=== PATIENT | male | born 1970 | race Caucasian/White ===

== ENCOUNTER → 2020-03-11 14:47 | Outpatient (BNVA) | payer BC, SELFPAY | PROVIDERS: Family Provider Family Medicine; PCP Family Medicine; Visit Provider Family Medicine | DX: E11.9 Type 2 diabetes mellitus without complications (principal); Z79.4 Long term (current) use of insulin | CPT/HCPCS: 80053; 83036 ==

== ENCOUNTER → 2020-04-12 13:41 | Outpatient (BNVA) | payer BC, SELFPAY | PROVIDERS: Family Provider Family Medicine; PCP Family Medicine; Visit Provider Family Medicine | DX: E11.9 Type 2 diabetes mellitus without complications (principal); Z79.4 Long term (current) use of insulin | CPT/HCPCS: 80061; 82044 ==

== ENCOUNTER → 2021-01-10 09:57 | Outpatient (BNVA) | payer BC, SELFPAY | PROVIDERS: Family Provider Family Medicine; PCP Family Medicine; Visit Provider Family Medicine | DX: E11.9 Type 2 diabetes mellitus without complications (principal); Z79.4 Long term (current) use of insulin | CPT/HCPCS: 80053; 80061; 81015; 82043; 83036; 85025 ==

== ENCOUNTER → 2021-02-07 11:12 | Outpatient (BNVA) | payer BC, SELFPAY | PROVIDERS: Family Provider Family Medicine; PCP Family Medicine; Visit Provider Family Medicine | DX: E78.5 Hyperlipidemia, unspecified (principal) | CPT/HCPCS: 80053 ==

== ENCOUNTER → 2021-04-04 10:52 | Outpatient (BNVA) | payer BC, SELFPAY | PROVIDERS: Family Provider Family Medicine; PCP Family Medicine; Visit Provider Family Medicine | DX: E11.9 Type 2 diabetes mellitus without complications (principal); Z79.4 Long term (current) use of insulin; E78.5 Hyperlipidemia, unspecified; F17.219 Nicotine dependence, cigarettes, with unspecified nicotine-induced disorders | CPT/HCPCS: 80053; 80061; 83036 ==

== ENCOUNTER 2021-04-17 22:19 | Inpatient (IN) | payer BC, SELFPAY ==
[2021-04-17 22:25] VITALS: BP 126/75; PULSE 140; RESP 24; TEMP 37.1; O2SAT 98; BMI 21.6
--- NOTE | 2021-04-17 23:15 | XRR_ITS ---
PROCEDURE INFORMATION: Exam: XR Chest Exam date and time: 04/17/2021 11:15 PM Age: 51 years old Clinical indication: Pain; On breathing; Additional info: Chest pain TECHNIQUE: Imaging protocol: XR of the chest. Views: 1 view. COMPARISON: No relevant prior studies available. FINDINGS: Lungs: Unremarkable. No consolidation. Pleural spaces: Unremarkable. No pleural effusion. No pneumothorax. Heart/Mediastinum: Unremarkable. No cardiomegaly. Bones/joints: Unremarkable. XR/XR chest 1V portable [id number] IMPRESSION: No acute findings.
--- NOTE | 2021-04-17 23:17 | ECG_ITS ---
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 Measurements Intervals [place] Rate: 131 P: 87 TX: 100 QRS: 74 QRSD: 88 T: 89 QT: 283 QTc: 418 Interpretive Statements SINUS TACHYCARDIA WITH SHORT TX INTERVAL WITH OCCASIONAL VENTRICULAR PREMATURE COMPLEXES Possible right atrial enlargement ABNORMAL RHYTHM ECG No previous ECG available for comparison Electronically Signed On 04-18-2021 21:11:40 CDT by Oumou Terry M.D. [id number] f
[2021-04-17] MEDS: sodium chloride 0.9% 1,000 ML 999 ML IV (23:34)
[2021-04-17 23:41] LABS: Basophils # 0.1 10^3/uL (0.0-0.1); Basophils % 0.2 %; Hematocrit 60.8 % (42.0-52.0); Hemoglobin 19.3 g/dL (11.7-16.6); Lymphocytes # 4.1 10^3/uL (0.8-4.8); Lymphocytes % 8.9 %; Mean Corpuscular HGB Conc 31.7 g/dL (30.0-36.0); Mean Corpuscular Hemoglobin 29.7 pg (28.0-34.0); Mean Corpuscular Volume 93.7 fL (80-94); Monocytes # 2.7 10^3/uL (0.2-0.9); Monocytes % 5.8 %; Neutrophils # 35.45 10^3/uL (1.8-7.7); Neutrophils % 77.5 %; Nucleated Red Blood Cells % 0 %; Platelet Count 233 10^3/cmm (130-400); Red Blood Count 6.49 10^6/uL (4.1-5.3); Red Cell Distribution Width 12.3 % (12.1-15.1)
[2021-04-17 23:51] LABS: Alanine Aminotransferase 15 U/L (0-41); Albumin Level 5.6 g/dL (3.5-5.2); Alkaline Phosphatase 116 IU/L (40-130); Blood Urea Nitrogen 33 mg/dL (6-20); C Reactive Protein 8.3 mg/L (0.0-4.9); Calcium 10.2 mg/dL (8.5-10.5); Chloride 96 mmol/L (98-107); Creatine Phosphokinase 60 U/L (39-308); Globulin 2.2 g/dL (1.3-4.6); Glomerular Filtration Rate 42.9 mL/min (90-130); Lipase 271 U/L (13-60); Magnesium 2.3 mg/dL (1.7-2.3); Osmolality Calculated 326 mOsm/kg (285-295); Sodium 139 mmol/L (136-145); Total Bilirubin 0.4 mg/dL (0.15-1.2); Total Protein 7.8 g/dL (6.6-8.7)
[2021-04-17 23:52] LABS: Troponin(5th) Baseline 7 ng/L (0-15)
[2021-04-17 23:57] LABS: Procalcitonin 0.65 ng/mL (0-0.5)
[2021-04-18] VITALS (33 sets, daily range): BP systolic 98–124; BP diastolic 65–86; PULSE 0–122; RESP 13–26; TEMP 36.6–37; O2SAT 96–99
[2021-04-18 00:04] LABS: Ketone (Acetest) Serum Positive (Negative)
[2021-04-18 00:14] LABS: Aspartate Amino Transferase 15 U/L (0-40)
[2021-04-18 00:15] LABS: Carbon Dioxide 8 mmol/L (22-29); Glucose 643 mg/dL (65-115)
[2021-04-18 00:16] LABS: Lactate (Lactic Acid level) 4.7 mmol/L (0.5-2.2)
[2021-04-18 00:21] LABS: D Dimer 0.38 ug/mIFEU (0-0.59)
[2021-04-18 00:22] LABS: SARS Covid-2 Antigen Negative (Negative)
[2021-04-18 00:26] LABS: White Blood Count 45.8 10^3/uL (4.0-10.0)
[2021-04-18] MEDS: sodium chloride 0.9% 1,000 ML 999 ML IV (00:33)
[2021-04-18] MEDS: insulin regular-human 250 UNIT in sodium chloride 0.9% 250 ML 7 UNIT IV (00:39)
[2021-04-18 00:40] LABS: ABG PCO2 24.4 mmHg (35-45); Arterial Blood Gas Hematocrit 52.1 % (42-52); Base Excess ABG -16.5 mmol/L (-2.0-2.0); Blood Gas Allen Test Pos; Blood Gas Sample Site Radial, right; Blood Gas Sample Type Arterial; HCO3 ABG 9.5 mmol/L (22-26); Oxygen Device ROOM AIR; PO2 ABG 94.1 mmHg (80.0-100.0)
--- NOTE | 2021-04-18 00:42 | P.HP_ITS ---
Providers/Chief Complaint Primary Care Provider: Karen Castro DO Chief Complaint: N/V/WEAKNESS History of Present Illness Armando Duncan is a 51 year old male who presented today with chief complaint of 1 week of nausea and vomiting. Patient is stating that his symptoms started about 7 days ago, he is not able to keep anything down, not even water, he started noticing decreased urine output hence decided to come to the hospital for further evaluation. He is denying productive cough, chest pain, shortness of breath, fever, diarrhea. He does carry history of non-Hodgkin's lymphoma currently in remission. At home he smokes on daily basis, does not drink alcohol denies IV drug abuse. Diagnosis in the ER revealed severe DKA, high lipase, I requested CT abdomen pelvis to rule pancreatitis, requested triglyceride levels CBC reveals severe leukocytosis, polycythemia, BMP revealed hyperkalemia, SAPPHIRE, severe metabolic acidosis Received 2 L of normal saline in the ER at the time my evaluation he was on 7 units of regular insulin gtt. Review of Systems Const: Reports: fatigue; Denies: fever(s) Eyes: Denies: change in vision ENMT: Denies: throat pain Card: Denies: chest pain Resp: Denies: dyspnea GI: Reports: abdominal pain, nausea and vomiting; Denies: diarrhea : Denies: flank pain Musc: Denies: neck pain Skin/Breast: Denies: rash Neuro: Denies: headache(s) Psych: Denies: anxiety Endo: Denies: polyuria Fernando/Lymph: Denies: easy bruising All/Imm: Denies: urticaria Medications/Allergies Home Medications Medication Instructions Recorded Confirmed Last Taken Type atorvastatin 40 mg tablet 40 mg PO .AT BEDTIME #30 tab 02/07/21 04/04/21 Unknown Rx insulin detemir U-100 100 unit/mL 45 unit SUBCUT DAILY 30 Days #20 ml 04/04/21 04/04/21 Unknown Rx subcutaneous solution insulin lispro 100 unit/mL 15 unit SUBCUT TID #10 ml 04/04/21 04/04/21 Unknown Rx subcutaneous solution metformin 500 mg tablet,extended 500 mg PO BID #60 tab 04/04/21 04/04/21 Unknown Rx release 24 hr Allergies Allergy/AdvReac Type Severity Reaction Status Date / Time codeine AdvReac Mild Unknown Verified 04/04/21 10:16 lisinopril AdvReac Mild COUGH Verified 04/04/21 10:16 PFSH Acute PFSH: Medical History Asperger syndrome Dyslipidemia Neuropathy Nicotine dependence, cigarettes, with unspecified nicotine-induced disorders Non-Hodgkin lymphoma in remission Type 2 diabetes mellitus, with long-term current use of insulin Surgical History History of appendectomy Family History Other CAD (coronary artery disease) Diabetes Social History Smoking and tobacco status: current every day smoker cigarettes Packs smoked per day: 0.5 Alcohol intake: never Vitals/I&O/Wt Last Vital Signs Temp 98.7 F 04/17/21 22:25 Pulse 140 H 04/17/21 22:25 Resp 24 H 04/17/21 22:25 BP 126/75 04/17/21 22:25 Pulse Ox 98 04/17/21 22:25 Weight last 48 hrs Weight 74.389 kg Physical Exam Narrative: EXAM NARRATIVE: Middle-age male who was sitting comfortably in his bed S1, S2 sinus tachycardia No signs of heart failure, clinically looks dehydrated Bilateral breath sound without adventitious rhonchi or crackles Abdomen soft surgical scar kamran. Hypoactive bowel sound Lower extremities no edema gangrene ulcer EOMI, PERRLA no neurological deficit Appropriate mood and after No active distress Data : 04/17/21 20:28 04/17/21 20:21 A&P Assessment and plan (1) DKA (diabetic ketoacidoses): Status: Acute (2) SAPPHIRE (acute kidney injury): Status: Acute (3) Hyperkalemia: Status: Acute Additional A&P Information Severe DKA Severe metabolic acidosis secondary to lactic acidemia and ketones Admit to ICU Start DKA protocol High lipase detected, requested CT abdomen pelvis to rule out pancreatitis, chec k triglyceride level and A1c He has not been able to take his meals and insulin properly in last few days because of recurrent nausea vomiting Severe leukocytosis, carries history of lymphoma in the past, no active signs of hyperviscosity Polycythemia detected, Received 3 L of normal saline in the ER, will need outpatient follow-up with signal system testing maintainer. SAPPHIRE secondary to dehydration: Anticipating improvement with fluid resuscitation Hyperkalemia, BMP every 4 hours, for now he is on normal saline running at 100 mL/h, will give 1 g calcium gluconate and bicarb 1amp N.p.o. Full code DVT prophylaxis Heparin Attestations Medical Necessity Statement*: Anticipating stay in the hospital cross more than 2 midnights for better management of DKA Time Spent in Patient Care: (>than 50% of time spent in counselling and/or direct pt care on unit) . 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
--- NOTE | 2021-04-18 00:54 | CTR_ITS ---
PROCEDURE INFORMATION: Exam: CT Abdomen And Pelvis Without Contrast Exam date and time: 04/18/2021 12:54 AM Age: 51 years old Clinical indication: Abdominal pain; Generalized; Prior surgery; Surgery date: 6+ months; Surgery type: Appy; Patient HX: HX of nhl and dka C/O abd pain w n/v; Additional info: Abd pain , dka TECHNIQUE: Imaging protocol: Computed tomography of the abdomen and pelvis without contrast. Radiation optimization: All CT scans at this facility use at least one of these dose optimization techniques: automated exposure control; mA and/or kV adjustment per patient size (includes targeted exams where dose is matched to clinical indication); or iterative reconstruction. COMPARISON: CR (CHEST, ) 04/17/2021 11:27 PM RADIATION DOSE METRICS: Total DLP (mGy-cm): 983.9 FINDINGS: Liver: Normal. No mass. Gallbladder and bile ducts: Normal. No calcified stones. No ductal dilation. Pancreas: Normal. No ductal dilation. Spleen: Normal. No splenomegaly. Adrenal glands: Normal. No mass. Kidneys and ureters: There is a 3 mm nonobstructing left renal calculus present. Stomach and bowel: Unremarkable. No obstruction. No mucosal thickening. Appendix: Status post appendectomy. Intraperitoneal space: Unremarkable. No free air. No significant fluid collection. Vasculature: Unremarkable. No abdominal aortic aneurysm. Lymph nodes: Unremarkable. No enlarged lymph nodes. Urinary bladder: Unremarkable as visualized. Reproductive: Unremarkable as visualized. Bones/joints: Unremarkable. No acute fracture. Soft tissues: Unremarkable. CT/CT abdomen pelvis wo con [id number] IMPRESSION: 1. There are no acute abdominal findings. 2. Nonobstructing 3 mm left renal calculus Radiation Dose CTDIVOL = (mGy): DLP = 983.9 (mGy-cm)
[2021-04-18 02:32] LABS: Glucose Point of Care 413 mg/dL (70-110)
[2021-04-18 02:58] LABS: Glucose Point of Care 441 mg/dL (70-110)
--- NOTE | 2021-04-18 03:09 | PC.NURSE ---
arrived from ED via stretcher, transferred self to bed, AO x4, follows commands, no c/o at this time
[2021-04-18] MEDS: heparin 5,000 unit/mL INJ 1 mL 5000 UNIT SUBCUT ×3 (03:34→19:00)
[2021-04-18] MEDS: sodium chloride 0.9% 1,000 ML 125 ML IV (03:35)
[2021-04-18 04:03] LABS: Estmated Average Glucose 280; Hemoglobin A1C 11.4 % (4.0-6.0)
[2021-04-18 04:32] LABS: Glucose Point of Care 271 mg/dL (70-110)
[2021-04-18 04:45] LABS: Add Urine Microscopic? YES; Bilirubin Urine Neg (Negative); Blood Urine 2+ (Negative); Glucose Urine UA 4+ (Normal); Ketones Urine 2+ (Negative); Leukocyte Esterase Urine Negative (Negative); Nitrate Urine Negative (Negative); Protein Urine Neg (Negative); Urine Appearance Clear (CLEAR); Urine Color Yellow (Yellow); Urobilinogen Urine Norm (Negative); pH Urine 5 (5-7)
[2021-04-18 05:03] LABS: Bacteria Urine 1+ /hpf; Hyaline Casts Urine 0-4 /lpf; Mucus Urine 1+ /hpf; RBC Urine 0-4 /hpf (0-2); Squamous Epithelial Cell Urine 0-4 /hpf (0-5); WBC Urine 0-4 /hpf (0-5)
[2021-04-18 05:04] LABS: Add Urine Culture? No; Amorphous Sediment Urine 1+ /hpf
[2021-04-18 05:26] LABS: Glucose Point of Care 237 mg/dL (70-110)
[2021-04-18 05:44] LABS: Blood Urea Nitrogen 36 mg/dL (6-20); Calcium 9.8 mg/dL (8.5-10.5); Chloride 95 mmol/L (98-107); Glomerular Filtration Rate 42.9 mL/min (90-130); Osmolality Calculated 318 mOsm/kg (285-295); Sodium 134 mmol/L (136-145); Triglycerides 190 mg/dL (0-150)
[2021-04-18 05:53] LABS: Anion Gap 36.4 (5-19); Potassium 6.4 mmol/L (3.5-5.1)
[2021-04-18 05:54] LABS: Carbon Dioxide 9 mmol/L (22-29); Glucose 665 mg/dL (65-115)
[2021-04-18 06:07] LABS: Glucose Point of Care 195 mg/dL (70-110)
[2021-04-18] MEDS: dextrose 5%-sod chloride 0.45% 1,000 ML 125 ML IV ×2 (06:29→14:26)
[2021-04-18 07:10] LABS: Glucose Point of Care 176 mg/dL (70-110)
[2021-04-18 07:43] LABS: Blood Urea Nitrogen 28 mg/dL (6-20); Calcium 9.2 mg/dL (8.5-10.5); Carbon Dioxide 19 mmol/L (22-29); Chloride 111 mmol/L (98-107); Glomerular Filtration Rate 89.3 mL/min (90-130); Glucose 198 mg/dL (65-115); Osmolality Calculated 303 mOsm/kg (285-295); Sodium 141 mmol/L (136-145)
[2021-04-18 08:07] LABS: Glucose Point of Care 198 mg/dL (70-110)
--- NOTE | 2021-04-18 08:19 | ED_ITS ---
HPI - General Adult General: Chief complaint: General Medical Stated complaint: N/V/WEAKNESS Time Seen by Provider: 04/17/21 22:50 History of Present Illness: HPI narrative: 51-year-old diabetic male patient with a history of vomiting for the last several days. He notes that he is not been able to hold even liquid down for the past 24 hours or more. He denies any fever. He denies diarrhea. He states that his sugars have been higher than normal as well. He does note having some trouble breathing. He states that his chest hurts a bit, likely from vomiting. No real belly pain. Onset (ago): day(s) Location: chest Radiation: non-radiation Severity: moderate Quality: burning and sharp Pain Consistency: intermittent Relieving factors: none Exacerbating factors: movement and other (Deep breathing) Associated symptoms: Reports chest pain, dyspnea, short of breath and vomiting; Deny confusion, cough, fevers/chills or headache(s) Review of Systems Const: Denies: fever(s) or chills Card: Reports: chest pain Resp: Reports: dyspnea GI: Reports: vomiting Neuro: Denies: headache(s) or confusion PFS ED PFSH: Medical History Asperger syndrome Dyslipidemia Neuropathy Nicotine dependence, cigarettes, with unspecified nicotine-induced disorders Non-Hodgkin lymphoma in remission Type 2 diabetes mellitus, with long-term current use of insulin Surgical History History of appendectomy Family History Other CAD (coronary artery disease) Diabetes Social History Smoking and tobacco status: current every day smoker cigarettes Packs smoked per day: 0.5 Alcohol intake: never Physical Exam Const: GENERAL APPEARANCE: cooperative, ill appearing and frail appearing ORIENTATION/CONSCIOUSNESS: Yes oriented to person, Yes oriented to place and Yes oriented to time HENMT: COMMON NORMALS: normocephalic, external ears normal and Normal external nose present HEAD & SCALP: normocephalic FACE & SINUS: normal facial exam NOSE: Normal external nose present and No nasal discharge present EXTERNAL EAR: Yes external ears normal Eye: COMMON NORMALS: Equal, round and reactive pupils present, EOMs intact bilaterally and conjunctivae normal EYELID: eyelids normal CONJUNCTIVA: Yes conjunctivae normal PUPIL: Yes Equal, round and reactive pupils present Neck/C-Spine: GENERAL: No tracheal deviation Chest: COMMONS NORMALS: normal inspection of the chest CHEST: No tenderness Resp: COMMON NORMALS: clear to auscultation bilaterally EFFORT & INSPECTION: Yes tachypneic, No respiratory distress, No retractions, Yes uses accessory muscles and No tracheal deviation AUSCULTATION: clear to auscultation bilaterally, no rhonchi, no wheezes and lung sounds not diminished Cardio: COMMON NORMALS: regular rhythm RATE: tachycardic RHYTHM: regular rhythm HEART SOUNDS: no murmurs PERIPHERAL PULSES: radial pulses present GI: INSPECTION: No abdominal distension AUSCULTATION: No Hyperactive bowel sounds present and No Hypoactive bowel sounds present PALPATION: No Guarding due to palpation present (GI) and No Rigid due to palpation PERCUSSION: no dullness to percussion and no tympanic to percussion Neuro: SENSORIUM/ORIENTATION: Yes oriented to person, Yes oriented to place and Yes oriented to time Psych: COMMON NORMALS: mental status grossly normal Skin: COMMON NORMALS: no rashes or lesions noted GENERAL SKIN EXAM: no rashes or lesions noted Course Vital Signs: Vital signs: Vital Signs Temperature 98.6 F 04/18/21 03:15 Pulse Rate 98 04/18/21 05:00 Respiratory Rate 20 H 04/18/21 05:00 Blood Pressure 106/74 04/18/21 05:00 Pulse Oximetry 98 04/18/21 05:00 MDM - General Adult MDM Narrative: Medical decision making narrative: Patient's blood sugar is in the 600s. Bicarbonate level was 8. pH 7.2. Potassium elevated. Serum ketones positive. In the ER, insulin drip was started as well as at least a 2 L bolus. He will go to the ICU for diabetic ketoacidosis. Lab Data: Labs: Lab Results 04/17/21 04/17/21 04/17/21 Range/Units 20:18 20:18 20:21 WBC (4.0-10.0) 10^3/ uL RBC (4.1-5.3) 10^6/u L Hgb (11.7-16.6) g/dL Hct (42.0-52.0) % MCV (80-94) fL MCH (28.0-34.0) pg MCHC (30.0-36.0) g/dL RDW (12.1-15.1) % Plt Count (130-400) 10^3/c mm MPV (7.4-10.4) fL Neut % (Auto) % Lymph % (Auto) % [place] % (Auto) % Eos % (Auto) % Baso % (Auto) % Neut # (Auto) (1.8-7.7) 10^3/u L Lymph # (Auto) (0.8-4.8) 10^3/u L [place] # (Auto) (0.2-0.9) 10^3/u L Eos # (Auto) (0.0-0.8) 10^3/u L Baso # (Auto) (0.0-0.1) 10^3/u L Nucleated RBC % (a uto) % Nucleated RBCs # /100WBC D-Dimer (0-0.59) ug/mIFE U Specimen Type Sample Site ABG pH (7.35-7.45) ABG pCO2 (35-45) mmHg ABG pO2 (80.0-100.0) mmH g ABG HCO3 (22-26) mmol/L ABG Base Excess (-2.0-2.0) mmol/ L Jin Test Hematocrit (42-52) % O2 Delivery Device Patient Liaison ID Sodium Cancelled 139 Potassium Cancelled 6.0 H Chloride Cancelled 96 L Carbon Dioxide Cancelled 8 L* Anion Gap Cancelled 41.0 H BUN Cancelled 33 H Creatinine Cancelled 1.7 H GFR Calculation Cancelled 42.9 L Glucose Cancelled 643 H* POC Glucose (70-110) mg/dL Estimat Average Gl ucose Hemoglobin A1c (4.0-6.0) % Calculated Osmolal ity Cancelled 326 H Lactate (0.5-2.2) mmol/L Calcium Cancelled 10.2 Magnesium 2.3 (1.7-2.3) mg/dL Total Bilirubin 0.4 (0.15-1.2) mg/dL AST 15 (0-40) U/L ALT 15 (0-41) U/L Alkaline Phosphata se 116 (40-130) IU/L Creatine Kinase 60 (39-308) U/L Troponin T Baselin e 7 (0-15) ng/L C-Reactive Protein 8.3 H (0.0-4.9) mg/L Total Protein 7.8 (6.6-8.7) g/dL Albumin 5.6 H (3.5-5.2) g/dL Globulin 2.2 (1.3-4.6) g/dL Triglycerides Cancelled Lipase 271 H (13-60) U/L Procalcitonin 0.65 H (0-0.5) ng/mL Serum Ketones (Negative) SARS-CoV-2 Ag (Rap id) (Negative) 04/17/21 04/17/21 04/17/21 Range/Units 20:28 23:40 23:40 WBC 45.8 H* (4.0-10.0) 10^3/ uL RBC 6.49 H (4.1-5.3) 10^6/u L Hgb 19.3 H (11.7-16.6) g/dL Hct 60.8 H (42.0-52.0) % MCV 93.7 (80-94) fL MCH 29.7 (28.0-34.0) pg MCHC 31.7 (30.0-36.0) g/dL RDW 12.3 (12.1-15.1) % Plt Count 233 (130-400) 10^3/c mm MPV 14.0 H (7.4-10.4) fL Neut % (Auto) 77.5 % Lymph % (Auto) 8.9 % Sear[place] % (Auto) 5.8 % Eos % (Auto) 0.0 % Baso % (Auto) 0.2 % Neut # (Auto) 35.45 H (1.8-7.7) 10^3/u L Lymph # (Auto) 4.1 (0.8-4.8) 10^3/u L Sear[place] # (Auto) 2.7 H (0.2-0.9) 10^3/u L Eos # (Auto) 0.0 (0.0-0.8) 10^3/u L Baso # (Auto) 0.1 (0.0-0.1) 10^3/u L Nucleated RBC % (a uto) 0 % Nucleated RBCs # 0.0 /100WBC D-Dimer 0.38 (0-0.59) ug/mIFE U Specimen Type Sample Site ABG pH (7.35-7.45) ABG pCO2 (35-45) mmHg ABG pO2 (80.0-100.0) mmH g ABG HCO3 (22-26) mmol/L ABG Base Excess (-2.0-2.0) mmol/ L Jin Test Hematocrit (42-52) % O2 Delivery Device Patient Liaison ID Sodium Potassium Chloride Carbon Dioxide Anion Gap BUN Creatinine GFR Calculation Glucose POC Glucose (70-110) mg/dL Estimat Average Gl ucose Hemoglobin A1c (4.0-6.0) % Calculated Osmolal ity Lactate 4.7 H* (0.5-2.2) mmol/L Calcium Magnesium (1.7-2.3) mg/dL Total Bilirubin (0.15-1.2) mg/dL AST (0-40) U/L ALT (0-41) U/L Alkaline Phosphata se (40-130) IU/L Creatine Kinase (39-308) U/L Troponin T Baselin e (0-15) ng/L C-Reactive Protein (0.0-4.9) mg/L Total Protein (6.6-8.7) g/dL Albumin (3.5-5.2) g/dL Globulin (1.3-4.6) g/dL Triglycerides Lipase (13-60) U/L Procalcitonin (0-0.5) ng/mL Serum Ketones (Negative) SARS-CoV-2 Ag (Rap id) (Negative) 04/17/21 04/17/21 04/17/21 Range/Units 23:40 23:40 23:40 WBC (4.0-10.0) 10^3/ uL RBC (4.1-5.3) 10^6/u L Hgb (11.7-16.6) g/dL Hct (42.0-52.0) % MCV (80-94) fL MCH (28.0-34.0) pg MCHC (30.0-36.0) g/dL RDW (12.1-15.1) % Plt Count (130-400) 10^3/c mm MPV (7.4-10.4) fL Neut % (Auto) % Lymph % (Auto) % [place] % (Auto) % Eos % (Auto) % Baso % (Auto) % Neut # (Auto) (1.8-7.7) 10^3/u L Lymph # (Auto) (0.8-4.8) 10^3/u L [place] # (Auto) (0.2-0.9) 10^3/u L Eos # (Auto) (0.0-0.8) 10^3/u L Baso # (Auto) (0.0-0.1) 10^3/u L Nucleated RBC % (a uto) % Nucleated RBCs # /100WBC D-Dimer (0-0.59) ug/mIFE U Specimen Type Sample Site ABG pH (7.35-7.45) ABG pCO2 (35-45) mmHg ABG pO2 (80.0-100.0) mmH g ABG HCO3 (22-26) mmol/L ABG Base Excess (-2.0-2.0) mmol/ L Jin Test Hematocrit (42-52) % O2 Delivery Device Patient Liaison ID Sodium Potassium Chloride Carbon Dioxide Anion Gap BUN Creatinine GFR Calculation Glucose POC Glucose (70-110) mg/dL Estimat Average Gl ucose 280 Hemoglobin A1c 11.4 H (4.0-6.0) % Calculated Osmolal ity Lactate (0.5-2.2) mmol/L Calcium Magnesium (1.7-2.3) mg/dL Total Bilirubin (0.15-1.2) mg/dL AST (0-40) U/L ALT (0-41) U/L Alkaline Phosphata se (40-130) IU/L Creatine Kinase (39-308) U/L Troponin T Baselin e (0-15) ng/L C-Reactive Protein (0.0-4.9) mg/L Total Protein (6.6-8.7) g/dL Albumin (3.5-5.2) g/dL Globulin (1.3-4.6) g/dL Triglycerides Lipase (13-60) U/L Procalcitonin (0-0.5) ng/mL Serum Ketones Positive H (Negative) SARS-CoV-2 Ag (Rap id) Negative (Negative) 04/17/21 04/18/21 04/18/21 Range/Units 23:40 00:30 02:29 WBC (4.0-10.0) 10^3/ uL RBC (4.1-5.3) 10^6/u L Hgb (11.7-16.6) g/dL Hct (42.0-52.0) % MCV (80-94) fL MCH (28.0-34.0) pg MCHC (30.0-36.0) g/dL RDW (12.1-15.1) % Plt Count (130-400) 10^3/c mm MPV (7.4-10.4) fL Neut % (Auto) % Lymph % (Auto) % [place] % (Auto) % Eos % (Auto) % Baso % (Auto) % Neut # (Auto) (1.8-7.7) 10^3/u L Lymph # (Auto) (0.8-4.8) 10^3/u L [place] # (Auto) (0.2-0.9) 10^3/u L Eos # (Auto) (0.0-0.8) 10^3/u L Baso # (Auto) (0.0-0.1) 10^3/u L Nucleated RBC % (a uto) % Nucleated RBCs # /100WBC D-Dimer (0-0.59) ug/mIFE U Specimen Type Arterial Sample Site Radial, right ABG pH 7.20 L (7.35-7.45) ABG pCO2 24.4 L (35-45) mmHg ABG pO2 94.1 (80.0-100.0) mmH g ABG HCO3 9.5 L (22-26) mmol/L ABG Base Excess -16.5 L (-2.0-2.0) mmol/ L Jin Test Pos Hematocrit 52.1 H (42-52) % O2 Delivery Device Room air Patient Liaison ID ellpe Sodium 134 L Potassium 6.4 H Chloride 95 L Carbon Dioxide 9 L Anion Gap 36.4 H BUN 36 H Creatinine 1.7 H GFR Calculation 42.9 L Glucose 665 H* POC Glucose 413 H (70-110) mg/dL Estimat Average Gl ucose Hemoglobin A1c (4.0-6.0) % Calculated Osmolal ity 318 H Lactate (0.5-2.2) mmol/L Calcium 9.8 Magnesium (1.7-2.3) mg/dL Total Bilirubin (0.15-1.2) mg/dL AST (0-40) U/L ALT (0-41) U/L Alkaline Phosphata se (40-130) IU/L Creatine Kinase (39-308) U/L Troponin T Baselin e (0-15) ng/L C-Reactive Protein (0.0-4.9) mg/L Total Protein (6.6-8.7) g/dL Albumin (3.5-5.2) g/dL Globulin (1.3-4.6) g/dL Triglycerides 190 H Lipase (13-60) U/L Procalcitonin (0-0.5) ng/mL Serum Ketones (Negative) SARS-CoV-2 Ag (Rap id) (Negative) 04/18/21 Range/Units 02:55 WBC (4.0-10.0) 10^3/ uL RBC (4.1-5.3) 10^6/u L Hgb (11.7-16.6) g/dL Hct (42.0-52.0) % MCV (80-94) fL MCH (28.0-34.0) pg MCHC (30.0-36.0) g/dL RDW (12.1-15.1) % Plt Count (130-400) 10^3/c mm MPV (7.4-10.4) fL Neut % (Auto) % Lymph % (Auto) % [place] % (Auto) % Eos % (Auto) % Baso % (Auto) % Neut # (Auto) (1.8-7.7) 10^3/u L Lymph # (Auto) (0.8-4.8) 10^3/u L [place] # (Auto) (0.2-0.9) 10^3/u L Eos # (Auto) (0.0-0.8) 10^3/u L Baso # (Auto) (0.0-0.1) 10^3/u L Nucleated RBC % (a uto) % Nucleated RBCs # /100WBC D-Dimer (0-0.59) ug/mIFE U Specimen Type Sample Site ABG pH (7.35-7.45) ABG pCO2 (35-45) mmHg ABG pO2 (80.0-100.0) mmH g ABG HCO3 (22-26) mmol/L ABG Base Excess (-2.0-2.0) mmol/ L Jin Test Hematocrit (42-52) % O2 Delivery Device Patient Liaison ID Sodium Potassium Chloride Carbon Dioxide Anion Gap BUN Creatinine GFR Calculation Glucose POC Glucose 441 H (70-110) mg/dL Estimat Average Gl ucose Hemoglobin A1c (4.0-6.0) % Calculated Osmolal ity Lactate (0.5-2.2) mmol/L Calcium Magnesium (1.7-2.3) mg/dL Total Bilirubin (0.15-1.2) mg/dL AST (0-40) U/L ALT (0-41) U/L Alkaline Phosphata se (40-130) IU/L Creatine Kinase (39-308) U/L Troponin T Baselin e (0-15) ng/L C-Reactive Protein (0.0-4.9) mg/L Total Protein (6.6-8.7) g/dL Albumin (3.5-5.2) g/dL Globulin (1.3-4.6) g/dL Triglycerides Lipase (13-60) U/L Procalcitonin (0-0.5) ng/mL Serum Ketones (Negative) SARS-CoV-2 Ag (Rap id) (Negative) Critical Care Time Critical Care Time: Critical Care Time: Yes Total Critical Care Time: 35 Attestation: This case had a high probability of a clinically significant, sudden, or life threatening deterioration of this patient's condition which required my full and direct attention, intervention and personal management. Discharge Plan Discharge Patient Disposition: Admitted As Inpatient Admit Provider: Alexy Fox Coding Level of Care Code ED Clinical Research Coordinator for [facility]
[2021-04-18 08:20] LABS: Basophils # 0.1 10^3/uL (0.0-0.1); Basophils % 0.3 %; Hematocrit 47.1 % (42.0-52.0); Hemoglobin 16.5 g/dL (11.7-16.6); Lymphocytes # 2.5 10^3/uL (0.8-4.8); Lymphocytes % 9.1 %; Mean Corpuscular Hemoglobin 30.3 pg (28.0-34.0); Mean Corpuscular Volume 86.4 fL (80-94); Monocytes # 2.6 10^3/uL (0.2-0.9); Monocytes % 9.7 %; Neutrophils # 21.18 10^3/uL (1.8-7.7); Neutrophils % 78.5 %; Nucleated Red Blood Cells % 0 %; Platelet Count 148 10^3/cmm (130-400); Red Blood Count 5.45 10^6/uL (4.1-5.3)
[2021-04-18 09:02] LABS: Glucose Point of Care 126 mg/dL (70-110)
[2021-04-18 09:07] LABS: LAB Peripheral Smear Sent for Review
[2021-04-18] MEDS: piperacillin-tazobactam 3.375 GM in sodium chloride 0.9% (plus) 50 ML IV ×2 (09:16→18:59)
[2021-04-18 10:02] LABS: Glucose Point of Care 107 mg/dL (70-110)
[2021-04-18 11:06] LABS: Glucose Point of Care 151 mg/dL (70-110)
[2021-04-18 11:34] LABS: Anion Gap 16.9 (5-19); Blood Urea Nitrogen 23 mg/dL (6-20); Calcium 9.1 mg/dL (8.5-10.5); Carbon Dioxide 18 mmol/L (22-29); Chloride 111 mmol/L (98-107); Glomerular Filtration Rate 119.4 mL/min (90-130); Glucose 134 mg/dL (65-115); Osmolality Calculated 300 mOsm/kg (285-295); Potassium 3.9 mmol/L (3.5-5.1); Sodium 142 mmol/L (136-145)
[2021-04-18 11:35] LABS: Lactate (Lactic Acid level) 0.9 mmol/L (0.5-2.2)
[2021-04-18 12:31] LABS: Glucose Point of Care 132 mg/dL (70-110)
--- NOTE | 2021-04-18 12:46 | PC.CHAP ---
Pastoral Care Encounter/Spiritual Assessment Type of Contact [] Declined manager traffic visit [] Patient/Family/Request visit [] Outpatient visit [] Follow-up visit [] Physician referral [] Code/Alert [] Routine visit [] Staff referral [] Actively dying [] Patient sleeping [] Family support [] [] Out of room [] Palliative care [] [] Receiving care in room [] Pre-surgical visit [] Trauma [] Long length of stay [] ICU visit [] Other: Relational/Emotional Strength [] Patient feels connected with others/family/visitors/staff [] Distress [] Loneliness/isolation [] Abandonment Spirituality of Patient [x] Person of [place] [] Attends Jewish of their [place] [] Believes in Prayer [] Reads Bible or Christianity materials [x] There are Spiritual issues to be addressed Administrator Interventions [x] Prayer [] Active listening [] Non-anxious presence [] Spiritual/emotional support [] Crisis/trauma care [] Spiritual counseling [] Bereavement support [] Provided bereavement packet [] Provided Bible/devotional materials [] Provided toy/stuffed animal, coloring book to patient or family member [] Provided Communion [] Anointing/[place] [] Salvation [] Completed spiritual assessment [] Other: Impact on Illness or Injury [] Angry [] Fearful [] Anxious [] Often cries [] Exhaustion [] Unable to work [] Unable to attend anabaptist [] Unable to walk/stand [] Unable to read [] Unable to drive [] Unable to eat/drink [] Unable to sleep [] Unable to be with family [] Patient intubated [] Other: Summary Time spent with patient
[2021-04-18 13:05] LABS: Glucose Point of Care 111 mg/dL (70-110)
--- NOTE | 2021-04-18 14:06 | PM.PN ---
Subjective Subjective: Interval history: Patient was seen this morning, he tells me that he is feeling better, no nausea, no vomiting, no lightheadedness, dizziness, no fevers, no chills, he tells me that he has a history of non-Hodgkin's lymphoma when he was a child, he received full body radiation, chemotherapy, he has not seen an oncologist since then, this was out when he lived in [place], he tells me that he has poorly controlled type 2 diabetes he thinks he might have developed type I, because recently he is lost over 40 pounds, he is change his lifestyle, but he continues to have difficult to control blood sugars, 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 Vitals/I&O/Wt Last Vital Signs Temp 97.8 F 04/18/21 08:00 Pulse 87 04/18/21 12:00 Resp 17 04/18/21 12:00 BP 104/68 04/18/21 10:00 Pulse Ox 96 04/18/21 12:00 04/17/21 04/18/21 04/18/21 22:59 06:59 14:59 Intake Total 2046.54 / 2046.54 1100 / 1100 Output Total 425 / 425 500 / 500 Balance 1621.54 / 1621.54 600 / 600 Weight last 48 hrs Weight 74.389 kg Physical Exam Const: COMMON NORMALS: no acute distress and patient oriented x3 Resp: COMMON NORMALS: normal respiratory effort, No retractions, No use of accessory muscles and clear to auscultation bilaterally AUSCULTATION: clear to auscultation bilaterally Cardio: COMMON NORMALS: regular rate, regular rhythm, S1 normal heart sound present and S2 normal heart sound present RATE: regular rate RHYTHM: regular rhythm HEART SOUNDS: S1 normal heart sound present and S2 normal heart sound present GI: COMMON NORMALS: Normal to inspection, nondistended, normoactive bowel sounds present, Soft to palpation and non-tender PALPATION: Yes Soft to palpation Extremity: COMMON NORMALS: no calf tenderness and no pedal edema Neuro: COMMON NORMALS: patient oriented x3 Psych: COMMON NORMALS: mental status grossly normal Data : 04/18/21 06:57 04/18/21 10:43 Micro: Microbiology 04/18/21 10:48 Blood Culture - Preliminary Blood SPECIMEN COLLECTED 04/18/21 10:43 Blood Culture - Preliminary Blood SPECIMEN COLLECTED A&P Assessment and plan (1) DKA (diabetic ketoacidoses): Status: Acute (2) SAPPHIRE (acute kidney injury): Status: Acute (3) Hyperkalemia: Status: Acute Additional A&P Information Severe DKA Severe metabolic acidosis secondary to lactic acidemia and ketones Admit to ICU Start DKA protocol Lipase 271, CT scan abdomen pelvis no radiographic evidence of pancreatitis, triglycerides 190, A1c 11.4 He has not been able to take his meals and insulin properly in last few days because of recurrent nausea vomiting Severe leukocytosis, carries history of lymphoma in the past, no active signs of hyperviscosity, UA evidence of possible UTI, start Zosyn Polycythemia detecte Received 3 L of normal saline in the ER, will need outpatient follow-up with machinist outside. SAPPHIRE secondary to dehydration: Anticipating improvement with fluid resuscitation Hyperkalemia, BMP every 4 hours, for now he is on normal saline running at 100 mL/h, status post 1 g calcium gluconate and bicarb 1amp N.p.o. 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
[2021-04-18 14:45] LABS: Glucose Point of Care 154 mg/dL (70-110)
[2021-04-18 15:03] LABS: Glucose Point of Care 179 mg/dL (70-110)
--- NOTE | 2021-04-18 15:11 | PC.RESP ---
SMOKING CESSATION INFORMATION SENT TO PATIENT.
[2021-04-18 15:47] LABS: Blood Urea Nitrogen 21 mg/dL (6-20); Calcium 8.9 mg/dL (8.5-10.5); Carbon Dioxide 16 mmol/L (22-29); Chloride 111 mmol/L (98-107); Glomerular Filtration Rate 119.4 mL/min (90-130); Glucose 157 mg/dL (65-115); Magnesium 2.1 mg/dL (1.7-2.3); Osmolality Calculated 296 mOsm/kg (285-295); Sodium 140 mmol/L (136-145)
[2021-04-18 15:54] LABS: Anion Gap 16.9 (5-19); Potassium 3.9 mmol/L (3.5-5.1)
[2021-04-18 16:15] LABS: Glucose Point of Care 166 mg/dL (70-110)
[2021-04-18 17:06] LABS: Glucose Point of Care 168 mg/dL (70-110)
[2021-04-18 18:02] LABS: Glucose Point of Care 163 mg/dL (70-110)
[2021-04-18 18:58] LABS: Glucose Point of Care 158 mg/dL (70-110)
[2021-04-18 20:32] LABS: Glucose Point of Care 167 mg/dL (70-110)
[2021-04-18 21:13] LABS: Glucose Point of Care 145 mg/dL (70-110)
[2021-04-18 21:18] LABS: Anion Gap 14.4 (5-19); Blood Urea Nitrogen 17 mg/dL (6-20); Calcium 8.6 mg/dL (8.5-10.5); Carbon Dioxide 19 mmol/L (22-29); Chloride 114 mmol/L (98-107); Glomerular Filtration Rate 119.4 mL/min (90-130); Glucose 166 mg/dL (65-115); Magnesium 1.9 mg/dL (1.7-2.3); Osmolality Calculated 303 mOsm/kg (285-295); Potassium 3.4 mmol/L (3.5-5.1); Sodium 144 mmol/L (136-145); Triglycerides 111 mg/dL (0-150)
--- NOTE | 2021-04-18 21:46 | PC.NURSE ---
Anion gap closed, Triglycerides redrawn and are WNL, Dr Fox notified, t.o. given to stop d5 fluids, let patient eat and HCP to put in SQ insulin order
[2021-04-18] MEDS: potassium chloride oral liq 20 mEq/15 mL UDC 40 MEQ PO (21:58)
[2021-04-19] VITALS (14 sets, daily range): BP systolic 88–114; BP diastolic 62–76; PULSE 65–89; RESP 15–22; TEMP 37.1; O2SAT 96–99
[2021-04-19] MEDS: piperacillin-tazobactam 3.375 GM in sodium chloride 0.9% (plus) 50 ML IV ×2 (01:55→09:37)
[2021-04-19] MEDS: heparin 5,000 unit/mL INJ 1 mL 5000 UNIT SUBCUT ×2 (01:58→11:51)
[2021-04-19 04:09] LABS: Basophils # 0.1 10^3/uL (0.0-0.1); Basophils % 0.5 %; Eosinophils % 0.1 %; Hematocrit 44.8 % (42.0-52.0); Hemoglobin 15.2 g/dL (11.7-16.6); Lymphocytes % 21.2 %; Mean Corpuscular HGB Conc 33.9 g/dL (30.0-36.0); Mean Corpuscular Hemoglobin 29.6 pg (28.0-34.0); Mean Corpuscular Volume 87.3 fL (80-94); Mean Platelet Volume 12.2 fL (7.4-10.4); Monocytes # 0.9 10^3/uL (0.2-0.9); Monocytes % 6.5 %; Neutrophils # 9.91 10^3/uL (1.8-7.7); Neutrophils % 71.1 %; Nucleated Red Blood Cells % 0 %; Platelet Count 103 10^3/cmm (130-400); Red Blood Count 5.13 10^6/uL (4.1-5.3); Red Cell Distribution Width 12.4 % (12.1-15.1)
[2021-04-19 04:16] LABS: Alanine Aminotransferase 9 U/L (0-41); Albumin Level 3.8 g/dL (3.5-5.2); Alkaline Phosphatase 69 IU/L (40-130); Anion Gap 15.1 (5-19); Aspartate Amino Transferase 10 U/L (0-40); Blood Urea Nitrogen 17 mg/dL (6-20); C Reactive Protein 5.8 mg/L (0.0-4.9); Calcium 8.9 mg/dL (8.5-10.5); Carbon Dioxide 20 mmol/L (22-29); Chloride 110 mmol/L (98-107); Globulin 1.8 g/dL (1.3-4.6); Glomerular Filtration Rate 119.4 mL/min (90-130); Glucose 239 mg/dL (65-115); Magnesium 1.9 mg/dL (1.7-2.3); Osmolality Calculated 301 mOsm/kg (285-295); Phosphorus 2.3 mg/dL (2.5-4.5); Potassium 4.1 mmol/L (3.5-5.1); Sodium 141 mmol/L (136-145); Total Bilirubin 0.5 mg/dL (0.15-1.2); Total Protein 5.6 g/dL (6.6-8.7)
[2021-04-19 04:22] LABS: Creatine Phosphokinase 30 U/L (39-308)
[2021-04-19 04:29] LABS: Procalcitonin 0.12 ng/mL (0-0.5)
[2021-04-19 07:35] LABS: Glucose Point of Care 179 mg/dL (70-110)
--- NOTE | 2021-04-19 09:26 | PC.CHAP ---
Pastoral Care Encounter/Spiritual Assessment Type of Contact [] Declined provider relations coordinator visit [] Patient/Family/Request visit [] Outpatient visit [] Follow-up visit [] Physician referral [] Code/Alert [x] Routine visit [] Staff referral [] Actively dying [] Patient sleeping [] Family support [] [] Out of room [] Palliative care [] [] Receiving care in room [] Pre-surgical visit [] Trauma [] Long length of stay [x] ICU visit [] Other: Relational/Emotional Strength [] Patient feels connected with others/family/visitors/staff [] Distress [] Loneliness/isolation [] Abandonment Spirituality of Patient [] Person of [place]leth [] Attends Anglican of their [place] [] Believes in Prayer [] Reads Bible or Amish materials [] There are Spiritual issues to be addressed Ring Making Machine Operator Interventions [x] Prayer [] Active listening [] Non-anxious presence [] Spiritual/emotional support [] Crisis/trauma care [] Spiritual counseling [] Bereavement support [] Provided bereavement packet [] Provided Bible/devotional materials [] Provided toy/stuffed animal, coloring book to patient or family member [] Provided Communion [] Anointing/Danube [] Salvation [x] Completed spiritual assessment [] Other: Impact on Illness or Injury [] Angry [] Fearful [] Anxious [] Often cries [] Exhaustion [] Unable to work [] Unable to attend jew [] Unable to walk/stand [] Unable to read [] Unable to drive [] Unable to eat/drink [] Unable to sleep [] Unable to be with family [] Patient intubated [] Other: Summary patient feeling much stronger,, looking foward to returning home Time spent with patient 10 min
[2021-04-19 11:07] LABS: Glucose Point of Care 123 mg/dL (70-110)
--- NOTE | 2021-04-19 12:13 | PM.DCS ---
Discharge Providers Date of Admission: 04/18/21 02:58 Date of Discharge: April 19, 2021 Attending Provider at Admission: Alexy Fox MD Attending Provider at Discharge: Robert Koch MD Primary Care Provider: Karen Castro DO Diagnoses at Discharge Discharge Diagnosis (1) DKA (diabetic ketoacidoses): Status: Acute (2) SAPPHIRE (acute kidney injury): Status: Acute (3) Hyperkalemia: Status: Acute Reason for Visit Reason for Visit: N/V/WEAKNESS Hospital Course Hospital Course This is a 51-year-old male with a past medical history of insulin-dependent type 2 diabetes mellitus, dyslipidemia, non-Hodgkin's lymphoma in remission, who presents to [facility] due to complaints of nausea, vomiting Patient was admitted to [facility] for dehydration, diabetic ketoacidosis, admitted to the ICU, receiving DKA protocol. Once patient's anion gap was closed, he was taken off insulin drip, he was transitioned to a moderate dose sliding scale and his home Levemir 45 units at bedtime. His blood sugars were monitored, his blood sugars were reasonable, he clinically did well. Patient will be discharged on his home Levemir 45 units at bedtime with a moderate dose sliding scale provided. Follow-up with primary care and endocrinology in the next week. Patient also had a urinary tract infection, urine culture so far have been unremarkable, discharged on 3 remaining days of Bactrim Discharge Data Data Completed and Pending: Completed Studies During Hospitalization Category Date Time Status CT abdomen pelvis wo con [id number] Urge nt Cat Scan 04/18/21 00:54 Completed XR chest 1V [place] ble [id number] Urgent Exams 04/17/21 23:15 Completed Pending at discharge Category Date Time Status Blood Culture Sta t Lab 04/18/21 10:48 Results C Reactive Protei n AM LABS Lab 04/20/21 04:00 Ordered C Reactive Protei n AM LABS Lab 04/21/21 04:00 Ordered Complete Blood Co unt w/Auto AM LABS Lab 04/20/21 04:00 Ordered Complete Blood Co unt w/Auto AM LABS Lab 04/21/21 04:00 Ordered Comprehensive Met abolic Panel AM LA BS Lab 04/20/21 04:00 Ordered Comprehensive Met abolic Panel AM LA BS Lab 04/21/21 04:00 Ordered Creatine Phosphok inase AM LABS Lab 04/20/21 04:00 Ordered Creatine Phosphok inase AM LABS Lab 04/21/21 04:00 Ordered Lactate (Lactic A halima level) AM LABS Lab 04/20/21 04:00 Ordered Lactate (Lactic A halima level) AM LABS Lab 04/21/21 04:00 Ordered Magnesium AM LABS Lab 04/20/21 04:00 Ordered Magnesium AM LABS Lab 04/21/21 04:00 Ordered Phosphorus AM LAB S Lab 04/20/21 04:00 Ordered Phosphorus AM LAB S Lab 04/21/21 04:00 Ordered Procalcitonin AM LABS Lab 04/20/21 04:00 Ordered Procalcitonin AM LABS Lab 04/21/21 04:00 Ordered Urine Culture Sta t Lab 04/18/21 17:25 Received Labs from last 24 hours 04/19/21 04/19/21 04/19/21 11:04 07:31 03:41 WBC RBC Hgb Hct MCV MCH MCHC RDW Plt Count MPV Neut % (Auto) Lymph % (Auto) [place] % (Auto) Eos % (Auto) Baso % (Auto) Neut # (Auto) Lymph # (Auto) [place] # (Auto) Eos # (Auto) Baso # (Auto) Nucleated RBC % (a uto) Nucleated RBCs # Sodium Potassium Chloride Carbon Dioxide Anion Gap BUN Creatinine GFR Calculation Glucose POC Glucose 123 H 179 H Calculated Osmolal ity Lactate Calcium Phosphorus Magnesium 2.0 Total Bilirubin AST ALT Alkaline Phosphata se Creatine Kinase 30 L C-Reactive Protein Total Protein Albumin Globulin Triglycerides Procalcitonin 0.12 04/19/21 04/19/21 04/19/21 03:41 03:41 03:41 WBC 14.0 H RBC 5.13 Hgb 15.2 Hct 44.8 MCV 87.3 MCH 29.6 MCHC 33.9 RDW 12.4 Plt Count 103 L MPV 12.2 H Neut % (Auto) 71.1 Lymph % (Auto) 21.2 Montgomery % (Auto) 6.5 Eos % (Auto) 0.1 Baso % (Auto) 0.5 Neut # (Auto) 9.91 H Lymph # (Auto) 3.0 Montgomery # (Auto) 0.9 Eos # (Auto) 0.0 Baso # (Auto) 0.1 Nucleated RBC % (a uto) 0 Nucleated RBCs # 0.0 Sodium 141 Potassium 4.1 Chloride 110 H Carbon Dioxide 20 L Anion Gap 15.1 BUN 17 Creatinine 0.7 GFR Calculation 119.4 Glucose 239 H POC Glucose Calculated Osmolal ity 301 H Lactate 1.0 Calcium 8.9 Phosphorus 2.3 L Magnesium 1.9 Total Bilirubin 0.5 AST 10 ALT 9 Alkaline Phosphata se 69 Creatine Kinase C-Reactive Protein 5.8 H Total Protein 5.6 L Albumin 3.8 Globulin 1.8 Triglycerides Procalcitonin 04/18/21 04/18/21 04/18/21 21:12 20:49 20:29 WBC RBC Hgb Hct MCV MCH MCHC RDW Plt Count MPV Neut % (Auto) Lymph % (Auto) Montgomery % (Auto) Eos % (Auto) Baso % (Auto) Neut # (Auto) Lymph # (Auto) [place] # (Auto) Eos # (Auto) Baso # (Auto) Nucleated RBC % (a uto) Nucleated RBCs # Sodium 144 Potassium 3.4 L Chloride 114 H Carbon Dioxide 19 L Anion Gap 14.4 BUN 17 Creatinine 0.7 GFR Calculation 119.4 Glucose 166 H POC Glucose 145 H 167 H Calculated Osmolal ity 303 H Lactate Calcium 8.6 Phosphorus Magnesium 1.9 Total Bilirubin AST ALT Alkaline Phosphata se Creatine Kinase C-Reactive Protein Total Protein Albumin Globulin Triglycerides 111 Procalcitonin 04/18/21 04/18/21 04/18/21 18:55 17:59 17:03 WBC RBC Hgb Hct MCV MCH MCHC RDW Plt Count MPV Neut % (Auto) Lymph % (Auto) [place] % (Auto) Eos % (Auto) Baso % (Auto) Neut # (Auto) Lymph # (Auto) [place] # (Auto) Eos # (Auto) Baso # (Auto) Nucleated RBC % (a uto) Nucleated RBCs # Sodium Potassium Chloride Carbon Dioxide Anion Gap BUN Creatinine GFR Calculation Glucose POC Glucose 158 H 163 H 168 H Calculated Osmolal ity Lactate Calcium Phosphorus Magnesium Total Bilirubin AST ALT Alkaline Phosphata se Creatine Kinase C-Reactive Protein Total Protein Albumin Globulin Triglycerides Procalcitonin 04/18/21 04/18/21 04/18/21 16:00 15:00 14:55 WBC RBC Hgb Hct MCV MCH MCHC RDW Plt Count MPV Neut % (Auto) Lymph % (Auto) [place] % (Auto) Eos % (Auto) Baso % (Auto) Neut # (Auto) Lymph # (Auto) [place] # (Auto) Eos # (Auto) Baso # (Auto) Nucleated RBC % (a uto) Nucleated RBCs # Sodium 140 Potassium 3.9 Chloride 111 H Carbon Dioxide 16 L Anion Gap 16.9 BUN 21 H Creatinine 0.7 GFR Calculation 119.4 Glucose 157 H POC Glucose 166 H 179 H Calculated Osmolal ity 296 H Lactate Calcium 8.9 Phosphorus Magnesium 2.1 Total Bilirubin AST ALT Alkaline Phosphata se Creatine Kinase C-Reactive Protein Total Protein Albumin Globulin Triglycerides Procalcitonin 04/18/21 04/18/21 04/18/21 14:23 13:02 12:28 WBC RBC Hgb Hct MCV MCH MCHC RDW Plt Count MPV Neut % (Auto) Lymph % (Auto) [place] % (Auto) Eos % (Auto) Baso % (Auto) Neut # (Auto) Lymph # (Auto) [place] # (Auto) Eos # (Auto) Baso # (Auto) Nucleated RBC % (a uto) Nucleated RBCs # Sodium Potassium Chloride Carbon Dioxide Anion Gap BUN Creatinine GFR Calculation Glucose POC Glucose 154 H 111 H 132 H Calculated Osmolal ity Lactate Calcium Phosphorus Magnesium Total Bilirubin AST ALT Alkaline Phosphata se Creatine Kinase C-Reactive Protein Total Protein Albumin Globulin Triglycerides Procalcitonin Vitals: Last Vital Signs Temp 98.8 F 04/19/21 10:00 Pulse 79 04/19/21 11:00 Resp 15 04/19/21 11:00 BP 114/71 04/19/21 11:00 Pulse Ox 99 04/19/21 11:00 Discharge Plan Discharge Patient Disposition: Home Condition: Stable Prescriptions: New sulfamethoxazole-trimethoprim [Bactrim DS] 800-160 mg tablet 1 tab PO Q12H 3 Days Qty: 6 RF: 0 Continued atorvastatin 40 mg Tablet 40 mg PO BEDTIME RF: 0 metformin 500 mg Tablet Extended Release 24 Hr 500 mg PO BID RF: 0 Levemir U-100 Insulin 100 unit/mL solution 45 unit SUBCUT DAILY RF: 0 Changed insulin lispro [Humalog U-100 Insulin] 100 unit/mL solution See Rx Instructions .ROUTE .COMPLEX Qty: 0 RF: 0 Discharge Orders: Discharge Order (Routine); Ordered 04/19/21 Ordered By: Robert Koch Referrals: Karen Castro DO [Primary Care Provider] - 1-3 days Discharge Diet: Diabetic Discharge Activity: Resume usual activity Patient Instructions: Opioid Safety Activity Restrictions/Additional Instructions: -Check blood sugars 3 times daily, if blood sugar greater than 500 come to the emergency room -Follow-up with primary care in the next 1 to 3 days -Insulin sliding scale provided as below -Please drink plenty of electrolyte balance fluids Insulin sliding scale provided below Fingerstick Blood Glucose Insulin Units 141-180 mg/dl 4 units/SQ 181-220 mg/dl 6 units/SQ 221-260 mg/dl 8 units/SQ 261-300 mg/dl 10 units/SQ 301-350 mg/dl 12 units/SQ 351-400 mg/dl 14 units/SQ greater than 400 mg/dl 16 units/SQ Discharge Attestations Time Spent in Discharge Care*: less than 30 min Quality Metrics Clinical Quality Measures During this hospital stay, did patient experience: None Coding Level of Care Code Acute g FW DC note Diagnoses DKA (diabetic ketoacidoses) E11.10 SAPPHIRE (acute kidney injury) N17.9 Hyperkalemia E87.5
--- NOTE | 2021-04-19 13:15 | PC.NURSE ---
Patient was discharged at 1310 with discharge paper in hand. All questions were answered prior to discharge. All belongings were with patient.
== END 2021-04-19 13:10 | disposition home or self-care (01) | DRG 638 ==
LOC: ER 04-18 01:23 → ICU 04-18 02:37
PROVIDERS: Admitting Provider Internal Medicine; Emergency Provider Emergency Medicine; PCP Family Medicine; Visit Provider Family Medicine
DX: E11.10 Type 2 diabetes mellitus with ketoacidosis without coma (principal); N17.9 Acute kidney failure, unspecified; E87.2 Acidosis; F84.5 Asperger's syndrome; N39.0 Urinary tract infection, site not specified; E87.5 Hyperkalemia; Z79.4 Long term (current) use of insulin; E78.5 Hyperlipidemia, unspecified; E11.40 Type 2 diabetes mellitus with diabetic neuropathy, unspecified; F17.210 Nicotine dependence, cigarettes, uncomplicated; Z85.72 Personal history of non-Hodgkin lymphomas; D75.1 Secondary polycythemia; E86.0 Dehydration; Z92.3 Personal history of irradiation; Z92.21 Personal history of antineoplastic chemotherapy
CPT/HCPCS: 36415; 36416; 36600; 71045; 74176; 80048; 80053; 81001; 82009; 82550; 82803; 82962; 83036; 83605; 83690; 83735; 84100; 84145; 84478; 84484; 85025; 85378; 86140; 87040; 87086; 87426; 93005; 96361; 96372; 96374; 99285; G0378; J1644; J1815; J2543; J7030; J7050; J7799

== ENCOUNTER → 2021-07-04 14:45 | Outpatient (BNVA) | payer BC, SELFPAY | PROVIDERS: PCP Family Medicine; Visit Provider Family Medicine | DX: E11.9 Type 2 diabetes mellitus without complications (principal); Z79.4 Long term (current) use of insulin; F33.1 Major depressive disorder, recurrent, moderate | CPT/HCPCS: 80053; 83036 ==

== ENCOUNTER → 2021-07-25 10:08 | Outpatient (BNVA) | payer BC, SELFPAY | PROVIDERS: PCP Family Medicine; Referring Provider Family Medicine; Visit Provider Internal Medicine | DX: E11.40 Type 2 diabetes mellitus with diabetic neuropathy, unspecified (principal); E11.649 Type 2 diabetes mellitus with hypoglycemia without coma; M79.671 Pain in right foot; Z79.4 Long term (current) use of insulin; F17.210 Nicotine dependence, cigarettes, uncomplicated | CPT/HCPCS: 99204 ==

== ENCOUNTER 2021-08-01 14:45 | Outpatient (CLI) | payer BC, SELFPAY | END 2021-08-01 14:46 | disposition home or self-care (01) | PROVIDERS: PCP Family Medicine; Visit Provider Internal Medicine | DX: E11.9 Type 2 diabetes mellitus without complications (principal); Z79.4 Long term (current) use of insulin | CPT/HCPCS: 83519; 83525; 86337 ==

== ENCOUNTER → 2022-05-09 14:48 | Outpatient (BNVA) | payer BC, SELFPAY | PROVIDERS: PCP Family Medicine; Visit Provider Family Medicine | DX: E10.65 Type 1 diabetes mellitus with hyperglycemia (principal) | CPT/HCPCS: 80053; 83036 ==

== ENCOUNTER → 2024-03-03 10:02 | Outpatient (BNVA) | payer BC, SELFPAY | PROVIDERS: PCP Family Medicine; Visit Provider Family Medicine | DX: Z51.81 Encounter for therapeutic drug level monitoring (principal); E11.9 Type 2 diabetes mellitus without complications; Z13.220 Encounter for screening for lipoid disorders | CPT/HCPCS: 80053; 80061; 83036; 83721; 85025 ==

== ENCOUNTER → 2024-08-12 17:27 | Outpatient (BNVA) | payer BC, SELFPAY | PROVIDERS: PCP Family Medicine; Visit Provider Family Medicine | DX: R07.9 Chest pain, unspecified (principal); Z51.81 Encounter for therapeutic drug level monitoring; E11.9 Type 2 diabetes mellitus without complications | CPT/HCPCS: 80053; 83036; 83735; 84484; 85025; 85379 ==

== ENCOUNTER 2024-08-13 08:40 | Outpatient (CLI) | payer BC, SELFPAY ==
--- NOTE | 2024-08-13 08:45 | XR_ITS ---
WS: [id number] Exam: XR shoulder RT min 2V* [id number] Date/Time of Exam: 08/13/2024 8:50 AM Reason For Exam: Right shoulder pain No fracture noted. The joints are preserved. Normal soft tissues. XR/XR shoulder RT min 2V* [id number] IMPRESSION: 1. No fracture or other significant finding.
== END 2024-08-13 08:41 | disposition home or self-care (01) ==
LOC: RAD 08:42
PROVIDERS: PCP Family Medicine; Visit Provider Family Medicine
DX: M25.511 Pain in right shoulder (principal)
CPT/HCPCS: 73030

== ENCOUNTER → 2025-04-07 12:03 | Outpatient (BNVA) | payer BC, SELFPAY | PROVIDERS: PCP Family Medicine; Visit Provider Family Medicine | DX: E10.65 Type 1 diabetes mellitus with hyperglycemia (principal); Z13.6 Encounter for screening for cardiovascular disorders | CPT/HCPCS: 80053; 83036 ==